=== PATIENT | female | born 1980 | race Caucasian/White ===

== ENCOUNTER 2020-03-09 20:55 | Emergency (ER) | payer SELFPAY ==
[~2020-03-09] VITALS: Ht 152.4 cm; Wt 68.5 kg
[2020-03-09 22:29] VITALS: BP 120/72
[2020-03-09] MEDS ORDERED: ONDANSETRON 4MG ODT PO ONE (22:30)
== END 2020-03-10 00:12 | disposition home or self-care (01) ==
LOC: ER 20:55
DX: R07.89 Other chest pain (principal); Z90.49 Acquired absence of other specified parts of digestive tract; V43.52XA Car driver injured in collision with other type car in traffic accident, initial encounter; W22.11XA Striking against or struck by driver side automobile airbag, initial encounter; Y93.89 Activity, other specified; Y92.488 Other paved roadways as the place of occurrence of the external cause
CPT/HCPCS: 71045; 81025; 99283; Q0162